=== PATIENT | female | born 1995 | race Caucasian/White ===

== ENCOUNTER 2024-05-26 14:51 | Emergency (ER) | payer BC ==
[~2024-05-26 14:51] MED LIST: Iopamidol 370 76% 100 ML VIAL ONE
[2024-05-26] MEDS ORDERED: Pantoprazole 40 MG VIAL ONE (15:20)
[2024-05-26] MEDS ORDERED: Mag-Al Plus 1200/1200/120 MG (30 mL) UDCUP ONE (15:20)
[2024-05-26 15:24] LABS: #Basophils 0.2 thou/uL (0.0-0.2); #Eosinophils 0.3 thou/uL (0.0-0.7); #Lymphocytes 3.6 thou/uL (1.20-3.40); #Monocytes 0.8 thou/uL (0.11-0.59); #Neutrophils 6.6 thou/uL (1.40-6.50); %Basophils 1.5 % (0.0-1.0); %Eosinophils 2.4 % (0.0-10.0); %Lymphocytes 31.4 % (21.0-51.0); %Monocytes 7.2 % (0.0-10.0); %Neutrophils 57.6 % (42.0-75.0); Hemoglobin 14.9 g/dL (12.0-16.0); Mean Corpuscular HGB CONC 33.2 g/dL (32.0-36.0); Mean Corpuscular Hemoglobin 28.6 pg (27.0-31.0); Mean Corpuscular Volume 86.3 fl (78.0-98.0); Mean Platelet Volume 8.7 fL (7.4-10.4); Platelet Count 203 10x3/uL (130-400); RBC Distribution Width 11.3 % (11.5-14.5); Red Blood Cell (RBC) Count 5.22 mill/uL (4.20-5.40); White Blood Cell (WBC) Count 11.4 10x3/uL (4.8-10.8)
[2024-05-26 15:39] LABS: ALT (SGPT) 19 U/L (Less than 34); AST (SGOT) 24 U/L (11-34); Albumin 4.5 g/dL (3.1-4.5); Alkaline Phosphatase 55 U/L (40-110); Anion Gap 17 mmol/L (10-20); BUN (Urea Nitrogen) 10 mg/dL (7.0-18.7); Bilirubin, Total 0.3 mg/dL (0.3-1.2); Calc. Creatinine Clearance 0 mL/min (70-130); Calcium 9.7 mg/dL (7.8-10.44); Carbon Dioxide 18 mmol/L (22-29); Chloride 106 mmol/L (98-107); Estimated GFR 112; Globulin 3.5 g/dL (2.4-3.5); Glucose 101 mg/dL (70-105); Lipase 25 U/L (8-78); Potassium 3.8 mmol/L (3.5-5.1); Sodium 137 mmol/L (136-145)
[2024-05-26 15:40] LABS: Troponin I Less than 0.010 ng/mL (< 0.028)
[2024-05-26] MEDS ORDERED: Morphine 2 MG/ML VIAL ONE (16:31)
[2024-05-26] MEDS ORDERED: Ondansetron PF 4 MG/2 ML Vial ONE (16:31)
[2024-05-26 16:53] LABS: Bilirubin Negative (Negative); Blood, Urine Moderate (Negative); Clarity Clear (Clear); Glucose, Urine (Dipstick) Negative (Negative); Ketone, Urine Negative (Negative); Leukocyte Negative (Negative); Nitrite Negative (Negative); Protein, Urine (Dipstick) Negative (Neg-Trace); Urobilinogen 0.2 mg/dL (Less than 2); pH, Urine 7.5 (5.0-9.0)
[2024-05-26 16:54] LABS: Pregnancy Test - Urine (BHCG) Negative (Negative); Pregu Control Background? CLEAR/WHITE (CLR/WHITE); Pregu Control Bar Appear? YES (CONTROL BAR)
[2024-05-26 17:02] LABS: Amphetamine PRELIM POSITIVE (Negative); Barbiturates Screen Negative (Negative); Benzodiazepine Screen Negative (Negative); Cocaine Metabolite Screen Negative (Negative); Methadone Negative (Negative); Methamphetamine Negative (Negative); Opiate Screen Negative (Negative); Oxycodone Screen Negative (Negative); Phencyclidine (PCP) Negative (Negative); THC/Cannabinoid Screen PRELIM POSITIVE (Negative); Tricyclic Screen Negative (Negative)
[2024-05-26 17:45] LABS: Bacteria/HPF 2+ HPF (None Seen); CAUTI Indications for Culture Pelvic or flank pain; RBC/HPF 0-3 HPF (0-3); Renal Epithelial 0-3 HPF (None Seen); Squamous Epithelial 0-3 HPF (0-3); WBC/HPF 0-3 HPF (0-3)
[2024-05-26 17:46] LABS: Mucous/LPF Rare LPF (<2+); Urine Culture Reflex No No
[2024-05-26 18:43] LABS: Troponin I Less than 0.010 ng/mL (< 0.028)
== END 2024-05-26 19:11 | disposition home or self-care (01) ==
LOC: NAV ERS 14:51
DX: K29.71 Gastritis, unspecified, with bleeding (principal); F17.290 Nicotine dependence, other tobacco product, uncomplicated; F90.9 Attention-deficit hyperactivity disorder, unspecified type; Z79.899 Other long term (current) drug therapy
CPT/HCPCS: 36415; 71045; 74177; 80053; 80306; 81001; 81025; 82274; 83690; 84443; 84484; 85025; 93005; 94760; 96374; 96375; J2272; J2405; J2470; Q9967